=== PATIENT | male | born 1990 | race American Indian/Alaskan Native ===

== ENCOUNTER 2017-10-28 13:51 | Emergency (ER) | payer MEDICAID, OTHER ==
[2017-10-28 13:58] VITALS: BMI 22.8
[2017-10-28 14:11] VITALS: RESP 18; TEMP 98.3; O2SAT 98
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
[2017-10-28 16:53] VITALS: BP 118/72; PULSE 67
== END 2017-10-28 16:51 | disposition home or self-care (01) ==
LOC: MERGE 13:51 → ED 13:51
DX: S39.012S Strain of muscle, fascia and tendon of lower back, sequela (principal); F17.210 Nicotine dependence, cigarettes, uncomplicated
CPT/HCPCS: 72100; 96372; 99284; J1885